=== PATIENT | male | born 1940 | race Two or more races ===

== ENCOUNTER 2018-08-20 08:39 | Outpatient (CLI) | payer OTHER ==
[~2018-08-20 08:39] MED LIST: LISINOPRIL-HCT1 EAC1 PO; PROSCAR5 MG PO; TAMS0.4C PO
== END 2018-08-20 08:49 | disposition home or self-care (01) ==
LOC: SONOGRAMA 08:39 → MAMO-SONO 10:45
DX: R31.0 Gross hematuria (principal)